=== PATIENT | male | born 1990 | race Caucasian/White ===

== ENCOUNTER 2017-09-01 12:34 | Emergency (ER) | payer SELFPAY ==
[2017-09-01 14:37] LABS: AMORPHOUS SEDIMENT,URINE TRACE /HPF; APPEARANCE,URINE CLOUDY; BILIRUBIN,URINE NEGATIVE (NEGATIVE); COLOR,URINE YELLOW; GLUCOSE, URINE NEGATIVE (NEGATIVE); KETONES,URINE NEGATIVE (NEGATIVE); LEUKOCYTE ESTERASE,URINE MODERATE (NEGATIVE); NITRITE,URINE NEGATIVE (NEGATIVE); PROTEIN,URINE NEGATIVE (NEGATIVE); URINE SPECIFIC GRAVITY 1.018; UROBILINOGEN,URINE NEGATIVE mg/dL (<2.0)
--- NOTE | 2017-09-01 14:40 | ER Document Report ---
ED GI/ - General Chief Complaint: Pain With Urination Stated Complaint: PAINFUL URINATION Time Seen by Provider: 09/01/17 13:35 Mode of Arrival: Ambulatory Information source: Patient Notes: Patient is a 27-year-old male who presents to the ER today for burning with urination 1 day, 1 day of clear, green penile discharge. Patient denies any abdominal pain or back pain, fever, chills. He states that he has one sexual partner right now and is not concerned about any STDs. TRAVEL OUTSIDE OF THE [place] IN LAST 30 DAYS: No - Related Data Allergies/Adverse Reactions: No Known Allergies Allergy (Unverified 09/01/17 12:37) Past Medical History - General Information source: Patient - Social History Smoking Status: Never Smoker Chew tobacco use (# tins/day): No Frequency of alcohol use: None Drug Abuse: None Family History: Reviewed & Not Pertinent Patient has suicidal ideation: No Patient has homicidal ideation: No Renal/ Medical History: Denies: Hx Peritoneal Dialysis Review of Systems - Review of Systems Constitutional: No symptoms reported EENT: No symptoms reported Cardiovascular: No symptoms reported Respiratory: No symptoms reported Gastrointestinal: No symptoms reported Genitourinary: No symptoms reported Male Genitourinary: See HPI Musculoskeletal: No symptoms reported Skin: No symptoms reported Hematologic/Lymphatic: No symptoms reported Neurological/Psychological: No symptoms reported Physical Exam - Vital signs Vitals: Temp Pulse Resp BP Pulse Ox 98.3 F 83 18 133/80 H 99 09/01/17 13:05 09/01/17 13:05 09/01/17 13:05 09/01/17 13:05 09/01/17 13:05 - Notes Notes: PHYSICAL EXAMINATION: GENERAL: Well-appearing and in no acute distress. HEAD: Atraumatic, normocephalic. EYES: Pupils equal round and reactive to light, extraocular movements intact, sclera anicteric, conjunctiva are normal. NECK: Normal range of motion, supple without lymphadenopathy LUNGS: CTAB and equal. No wheezes rales or rhonchi. HEART: Regular rate and rhythm without murmurs ABDOMEN: Soft, no tenderness. No guarding, no rebound BACK: no vertebral tenderness, normal ROM GI/: no CVA tenderness EXTREMITIES: Normal range of motion, no pitting edema. No cyanosis. NEUROLOGICAL: Cranial nerves grossly intact. Normal sensory/motor exams. PSYCH: Normal mood, normal affect. SKIN: Warm, Dry, normal turgor, no rashes or lesions noted Course - Re-evaluation Re-evalutation: 09/01/17 19:52 Patient had large amount of white blood cells on urinalysis. He had moderate leukocytes and small amount of blood. Patient was positive for gonorrhea today. Patient received azithromycin 1 dose of 1000 mg as well as 250 mg of IM Rocephin here in the emergency department and will go home with Keflex as a prescription. Patient advised to tell his sexual partner about his diagnosis of gonorrhea today. 09/01/17 19:52 - Vital Signs Vital signs: Temp Pulse Resp BP Pulse Ox 97.7 F 71 16 134/75 H 98 09/01/17 14:50 09/01/17 14:50 09/01/17 14:50 09/01/17 14:50 09/01/17 14:50 - Laboratory Laboratory results interpreted by me: 09/01/17 09/01/17 13:35 14:10 Urine Blood SMALL H Ur Leukocyte Esterase MODERATE H N.gonorrhoeae DNA (PCR) DETECTED H Discharge - Discharge Clinical Impression: Gonorrhea UTI (urinary tract infection) Qualifiers: Urinary tract infection type: site unspecified Hematuria presence: with hematuria Qualified Code(s): N39.0 - Urinary tract infection, site not specified Condition: Stable Disposition: HOME, SELF-CARE Instructions: Urinary Tract Infection ([facility]) Additional Instructions: Return immediately for any new or worsening symptoms. Follow up with primary care provider, call tomorrow to make followup appointment. Drink plenty of water. Prescriptions: Cephalexin Monohydrate [Keflex 500 mg Capsule] 500 mg PO BID 7 Days #14 capsule
[2017-09-01] MEDS ORDERED: CEFTRIAXONE INJ 250 MG VIAL IM ONE (14:44)
[2017-09-01] MEDS ORDERED: AZITHROMYCIN 250 MG TABLET PO ONE (14:44)
[2017-09-01] MEDS ORDERED: LIDOCAINE 1% INJ-PF (10 MG/ML) 30 ML SDV INJ ONE (14:44)
[2017-09-01 14:57] VITALS: BP 134/75
[2017-09-01 15:51] LABS: CHLAM PCR NOT DETECTED (NOT DETECT); GON PCR DETECTED (NOT DETECT)
== END 2017-09-01 14:57 | disposition home or self-care (01) ==
LOC: ER 12:34
DX: A54.9 Gonococcal infection, unspecified (principal); N39.0 Urinary tract infection, site not specified; R30.9 Painful micturition, unspecified; R36.9 Urethral discharge, unspecified
CPT/HCPCS: 99283; 96372; 87086; 81001; 87491; 87591; J3490; J0696

== ENCOUNTER 2019-02-17 09:49 | Emergency (ER) | payer BC ==
[2019-02-17] MEDS ORDERED: CEFTRIAXONE INJ 250 MG VIAL IM ONE (10:35)
[2019-02-17] MEDS ORDERED: LIDOCAINE 1% INJ-PF (10 MG/ML) 30 ML SDV IM ONE (10:35)
[2019-02-17] MEDS ORDERED: AZITHROMYCIN 250 MG TABLET PO ONE (10:35)
[2019-02-17 11:11] LABS: APPEARANCE,URINE SLIGHTLY-CLOUDY; BILIRUBIN,URINE NEGATIVE (NEGATIVE); COLOR,URINE YELLOW; GLUCOSE, URINE NEGATIVE (NEGATIVE); KETONES,URINE NEGATIVE (NEGATIVE); LEUKOCYTE ESTERASE,URINE TRACE (NEGATIVE); NITRITE,URINE NEGATIVE (NEGATIVE); PROTEIN,URINE NEGATIVE (NEGATIVE); URINE SPECIFIC GRAVITY 1.017; UROBILINOGEN,URINE NEGATIVE mg/dL (<2.0)
[2019-02-17] MEDS ORDERED: DEXAMETHASONE SOD PHOS INJ 10 MG/1 ML VIAL IM ONE (11:23)
--- NOTE | 2019-02-17 12:27 | ER Document Report ---
HPI - HPI Time Seen by Provider: 02/17/19 10:33 Pain Level: 0 Notes: Patient is a 28-year-old male presenting to the emergency department with complaints of sore throat and penile discharge. Patient reports the sore throat started yesterday. He reports he is able to swallow without difficulty. He also reports yellowish penile discharge with some dysuria. He denies any concern for STDs. He denies any nausea, vomiting, diarrhea or fevers. - CONSTITUTIONAL Constitutional: DENIES: Fever, Chills - EENT EENT: REPORTS: Sore Throat - URINARY Urinary: DENIES: Dysuria - penile discharge - REPRODUCTIVE Reproductive: DENIES: : Past Medical History - General Information source: Patient - Social History Smoking Status: Never Smoker Frequency of alcohol use: None Drug Abuse: None Family History: Reviewed & Not Pertinent Patient has suicidal ideation: No Patient has homicidal ideation: No - Medical History Medical History: Negative Renal/ Medical History: Denies: Hx Peritoneal Dialysis Surgical Hx: Negative - Immunizations Immunizations up to date: Yes Vertical Provider Document - CONSTITUTIONAL Notes: PHYSICAL EXAMINATION: GENERAL: Well-appearing, well-nourished and in no acute distress. HEAD: Atraumatic, normocephalic. EYES: Pupils equal round and reactive to light, extraocular movements intact, sclera anicteric, conjunctiva are normal. ENT: Nares patent, oropharynx clear without exudates. Moist mucous membranes. NECK: Normal range of motion, supple without lymphadenopathy LUNGS: Breath sounds clear to auscultation bilaterally and equal. No wheezes rales or rhonchi. HEART: Regular rate and rhythm without murmurs ABDOMEN: Soft, nontender, nondistended abdomen. No guarding, no rebound. No masses appreciated. Musculoskeletal: Normal range of motion, no pitting or edema. No cyanosis. NEUROLOGICAL: Cranial nerves grossly intact. Normal speech, normal gait. Normal sensory, motor exams PSYCH: Normal mood, normal affect. SKIN: Warm, Dry, normal turgor, no rashes or lesions noted. - INFECTION CONTROL TRAVEL OUTSIDE OF THE [place] IN LAST 30 DAYS: No Course - Re-evaluation Re-evalutation: Rapid strep was obtained and is negative. Throat culture pending. I did swab the patient's throat for chlamydia and gonorrhea. These will be pending. Patient's urinalysis does show leukocyte esterase and some white blood cells. Patient would like prophylactic treatment for STDs. He will receive Rocephin and azithromycin. I will also start him on a round of Keflex for the urinary tract infection. - Vital Signs Vital signs: Temp Pulse Resp BP Pulse Ox 98.3 F 76 14 128/69 H 96 02/17/19 09:56 02/17/19 09:56 02/17/19 09:56 02/17/19 09:56 02/17/19 09:56 - Laboratory Laboratory results interpreted by me: 02/17/19 10:30 Urine Blood SMALL H Ur Leukocyte Esterase TRACE H Discharge - Discharge Clinical Impression: Sore throat Urinary tract infection Qualifiers: Urinary tract infection type: site unspecified Hematuria presence: without hematuria Qualified Code(s): N39.0 - Urinary tract infection, site not specified Condition: Stable Disposition: HOME, SELF-CARE Additional Instructions: The chlamydia and gonorrhea testing are still pending. Your urine does appear to be infected so I will start you on antibiotics for this. We will call you in the next couple of hours if your chlamydia and/or gonorrhea testing is positive. The rapid strep today was negative but a throat culture is pending. This takes several days to come back. If there is any abnormality with this someone will call you in the next 48 to 72 hours. Return to the emergency department with any new or worsening symptoms to include inability to swallow. Prescriptions: Cephalexin [Cephalexin 500 MG Tablet] 1 tab PO BID #14 tablet
[2019-02-17 12:37] LABS: CHLAM PCR NOT DETECTED (NOT DETECT)
[2019-02-17 12:51] VITALS: BP 129/72
== END 2019-02-17 12:51 | disposition home or self-care (01) ==
LOC: ER 09:49
DX: J02.9 Acute pharyngitis, unspecified (principal); N39.0 Urinary tract infection, site not specified; R36.9 Urethral discharge, unspecified
CPT/HCPCS: 99283; 96372; 87491 ×2; 87591 ×2; 87070; 87880; 87077; 81001; J3490; J0696; J1100